=== PATIENT | male | born 1980 | race African-American/Black ===

== ENCOUNTER 2017-07-25 19:43 | Emergency (ER) | payer OTHER ==
[~2017-07-25] VITALS: Ht 177.8 cm; Wt 82.0 kg
[2017-07-25 20:44] LABS: BASOPHILS % 0.3 % (0.0-2.0); EOSINOPHILS % 0.5 % (0.0-5.0); HEMATOCRIT. 42.2 % (42.0-52.0); HEMOGLOBIN. 14.3 g/dL (14.0-18.0); LYMPHOCYTES % 11.9 % (20.0-50.0); MEAN CORPUSCULAR HEMOGLOBIN 29.9 pg (28.0-32.0); MEAN CORPUSCULAR VOLUME 88.1 fL (80.0-94.0); MEAN PLATELET VOLUME 8.3 fl (7.4-10.4); MONOCYTES % 6.5 % (2.0-8.0); NEUTROPHILS % 80.8 % (40.0-76.0); PLATELET 246 x1000/uL (130-400); RED BLOOD CELL COUNT 4.79 mill/uL (4.7-6.1); RED CELL DISTRIBUTION WIDTH 13.9 % (11.6-14.6)
[2017-07-25 21:01] LABS: CHLORIDE 106 mEq/L (98-107)
[2017-07-25 22:31] VITALS: BP 136/85
== END 2017-07-25 23:00 | disposition home or self-care (01) ==
LOC: ER 19:55
DX: R51 Headache (principal); R55 Syncope and collapse; I10 Essential (primary) hypertension; J45.909 Unspecified asthma, uncomplicated
CPT/HCPCS: 36415; 70450; 80053; 85025; 93005; 99285; Z7610

== ENCOUNTER 2017-07-28 03:16 | Emergency (ER) | payer SELFPAY ==
[~2017-07-28] VITALS: Ht 182.9 cm; Wt 90.0 kg
[2017-07-28] MEDS ORDERED: ONDANSETRON HCL 4MG/2ML VIAL IV STA (03:27)
[2017-07-28] MEDS ORDERED: MORPHINE SULFATE 4 MG/ML CPJ (NOT FOR IM USE) IV STA (03:27)
[2017-07-28] MEDS ORDERED: TETANUS, DIPHTHERIA, PERTUSSIS VAC/PF 0.5ML (>7YR OLD) IM ONE (03:30)
[2017-07-28] MEDS ORDERED: CEFAZOLIN 1000MG PREMIX 50 ML IV ONE (03:30)
[2017-07-28] MEDS ORDERED: MORPHINE SULFATE 4 MG/ML CPJ (NOT FOR IM USE) IV ONE (03:34)
[2017-07-28 03:57] LABS: BASOPHILS % 1.1 % (0.0-2.0); HEMATOCRIT. 40.3 % (42.0-52.0); HEMOGLOBIN. 13.5 g/dL (14.0-18.0); LYMPHOCYTES % 40.8 % (20.0-50.0); MEAN CORPUSCULAR HEMOGLOBIN 29.5 pg (28.0-32.0); MEAN CORPUSCULAR VOLUME 87.7 fL (80.0-94.0); MEAN PLATELET VOLUME 8.4 fl (7.4-10.4); NEUTROPHILS % 47.1 % (40.0-76.0); PLATELET 257 x1000/uL (130-400); RED CELL DISTRIBUTION WIDTH 13.8 % (11.6-14.6)
[2017-07-28 04:00] LABS: CHLORIDE 106 mEq/L (98-107)
[2017-07-28] MEDS ORDERED: HYDROCODONE/ACETAMINOPHEN 10/325MG TABLET PO ONE (04:00)
[2017-07-28 09:18] VITALS: BP 120/76
== END 2017-07-28 09:18 | disposition home or self-care (01) ==
LOC: ER 03:16
DX: S92.331A Displaced fracture of third metatarsal bone, right foot, initial encounter for closed fracture (principal); F12.10 Cannabis abuse, uncomplicated; W33.01XA Accidental discharge of shotgun, initial encounter; Y93.89 Activity, other specified; Y92.89 Other specified places as the place of occurrence of the external cause; Y99.8 Other external cause status
CPT/HCPCS: 29515; 36415; 71045; 72170; 73630; 80053; 83690; 85025; 86850; 86900; 86901; 90471; 90715; 96365; 96375; 99285; J0690; J2270; J2405